=== PATIENT | male | born 1995 | race African-American/Black ===

== ENCOUNTER 2018-09-30 09:15 | Emergency (ER) | payer SELFPAY ==
[2018-09-30 09:30] VITALS: BP 151/74; PULSE 102; TEMP 98.1; BMI 36.2
[2018-09-30] MEDS ORDERED: ALBUTEROL SO4 2.5/IPRATROPIUM 0.5 INH SOL 3 ML VIAL.NEB. NEB ONE (10:10)
[2018-09-30] MEDS: ALBUTEROL SO4 2.5/IPRATROPIUM 0.5 INH SOL 3 ML VIAL.NEB. NEB SCH ×3 (10:12→11:03)
--- NOTE | 2018-09-30 10:22 | PDOC ---
History of Present Illness - General Chief Complaint: Rash Stated Complaint: RASH Time Seen by Provider: 09/30/18 09:38 History Source: Patient - History of Present Illness Timing/Duration: reports: week Location: reports: extremities, torso Past History - Past Medical History Allergies/Adverse Reactions: Allergies Allergy/AdvReac Type Severity Reaction Status Date / Time No Known Allergies Allergy Verified 09/30/18 09:27 Home Medications: Ambulatory Orders Albuterol Sulfate Inhaler - [Ventolin Hfa Inhaler -] 1 - 2 inh PO Q4H #1 inhaler 09/30/18 COPD: No CHF: No DVT: No - Immunization History Td Vaccination: (june 2014) Immunization Up to Date: Yes - Suicide/Smoking/Psychosocial Hx Smoking Status: Yes Smoking History: Never smoked Years of Tobacco Use: 0 Number of Cigarettes Smoked Daily: 3 Cigars Per Day: 0 Information on smoking cessation initiated: No Hx Alcohol Use: No Drug/Substance Use Hx: No Substance Use Type: Marijuana Review of Systems - Review of Systems Constitutional: No: Chills, Fever Respiratory: Yes: Cough. No: Shortness of Breath, Hemoptysis Cardiac (ROS): No: Chest Pain Integumentary: Yes: Rash. No: Pruritus *Physical Exam - Vital Signs Last Vital Signs Temp Pulse Resp BP Pulse Ox 98.1 F 102 H 16 151/74 97 09/30/18 09:28 09/30/18 09:28 09/30/18 09:28 09/30/18 09:28 09/30/18 09:28 - Physical Exam General Appearance: Yes: Appropriately Dressed. No: Apparent Distress HEENT: positive: Normal Voice Neck: positive: Supple Respiratory/Chest: positive: Wheezing (diffusely) Cardiovascular: positive: Regular Rate, S1, S2 Integumentary: positive: Dry, Warm, Other (fine, erythematous papules in almost linear streaks to R trunk, R neck and R arm, no hand/palm involvement) Neurologic: positive: Fully Oriented, Alert, Normal Mood/Affect Moderate Sedation - Procedure Monitoring Vital Signs: Procedure Monitoring Vital Signs Temperature 98.1 F 09/30/18 09:28 Pulse Rate 102 H 09/30/18 09:28 Respiratory Rate 16 09/30/18 09:28 Blood Pressure 151/74 09/30/18 09:28 O2 Sat by Pulse Oximetry (%) 97 09/30/18 09:28 ED Treatment Course - RADIOLOGY Radiology Studies Ordered: Category Date Time Status CHEST PA & LAT [RAD] Stat Radiology 09/30/18 10:01 Taken Medical Decision Making - Medical Decision Making 09/30/18 10:17 23 yo M, smoker, here w/ rash to trunk, extremities and face x 1 week. No pruritus or pain. No obvious inciting factors such as sick contacts, travel, contact w/ plants/poison monica or new soap/detergent. No h/o same. Also reports cough x 2 years, mostly non-productive. No wheezing, CP, f/c. Quit smoking 3 days ago for the new years per pt See exam Nonspecific dermatitis No e/o serious pathology -dc w/ derm f/u Chronic cough Concern for possible COPD Smoker +wheezing on exam -nebs -CXR -anticipate dc w/ alb pump and pulm referral for PFTs 09/30/18 11:06 CXR unremarkable. Lungs clear s/p nebs and able to ambulate without sob. Will dc w/ alb pump and pulm referral. Derm referral also given for rash *DC/Admit/Observation/Transfer Diagnosis at time of Disposition: Cough, Dermatitis - Discharge Dispostion Disposition: HOME Condition at time of disposition: Improved - Prescriptions Prescriptions: Albuterol Sulfate Inhaler - [Ventolin Hfa Inhaler -] 1 - 2 inh PO Q4H #1 inhaler - Referrals Referrals: Eleanor Kang MD [Staff Physician] - Niles Antoine MD [Staff Physician] - - Patient Instructions Printed Discharge Instructions: DI for Rash Additional Instructions: Please follow up with Dr Antoine of pulmonary for further evaluation and use pump as needed for shortness of breath and wheezing Please follow up with Dr Kang or dermatology if rash persists - Post Discharge Activity
== END 2018-09-30 11:17 | disposition home or self-care (01) ==
LOC: JERFT 09:15
DX: L30.9 Dermatitis, unspecified (principal); R05 Cough; Z72.0 Tobacco use
CPT/HCPCS: 71046-TC-FY; 99281-25

== ENCOUNTER 2019-09-08 13:37 | Emergency (ER) | payer OTHER ==
[2019-09-08 13:52] VITALS: BP 121/69; PULSE 64; TEMP 97.7; BMI 32.1
--- NOTE | 2019-09-08 15:14 | PDOC ---
History of Present Illness - General Chief Complaint: Chest Pain Stated Complaint: CHEST PAIN Time Seen by Provider: 09/08/19 13:58 - History of Present Illness Initial Comments: 09/08/19 15:13 23-year-old male without comorbidities presents for evaluation of 1 day of chest pain which started this morning while he was waking up. Pain exacerbated with motion relieved with rest and without radiation no systemic symptoms. Past History - Past Medical History Allergies/Adverse Reactions: Allergies Allergy/AdvReac Type Severity Reaction Status Date / Time No Known Allergies Allergy Verified 09/08/19 13:44 Home Medications: Ambulatory Orders Albuterol Sulfate Inhaler - [Ventolin Hfa Inhaler -] 1 - 2 inh PO Q4H #1 inhaler 09/30/18 COPD: No CHF: No DVT: No - Immunization History Td Vaccination: (june 2014) Immunization Up to Date: Yes - Psycho Social/Smoking Cessation Hx Smoking Status: Yes Smoking History: Current every day smoker Years of Tobacco Use: 0 Have you smoked in the past 12 months: Yes Number of Cigarettes Smoked Daily: 3 Cigars Per Day: 0 Information on smoking cessation initiated: No Hx Alcohol Use: No Drug/Substance Use Hx: Yes (MARIJUANA) Substance Use Type: Marijuana Review of Systems - Review of Systems Cardiac (ROS): Yes: Chest Pain *Physical Exam - Vital Signs Last Vital Signs Temp Pulse Resp BP Pulse Ox 97.7 F 64 18 121/69 100 09/08/19 13:49 09/08/19 13:49 09/08/19 13:49 09/08/19 13:49 09/08/19 13:49 - Physical Exam 09/08/19 15:13 GENERAL: The patient is awake, alert, and fully oriented, in no acute distress. HEAD: Normal with no signs of trauma. EYES: sclera anicteric, conjunctiva clear. ENT: Ears normal tympanic membranes normal oropharynx clear uvula midline NECK: Normal range of motion LUNGS: Breath sounds equal, clear to auscultation bilaterally. No wheezes, and no crackles. HEART: S1 and S2 without murmur, rub or gallop. Left-sided costochondral tenderness ABDOMEN: Soft, nontender, normoactive bowel sounds. No guarding, no rebound. No masses. EXTREMITIES: Normal range of motion, no edema. No clubbing or cyanosis. No cords, erythema, or tenderness. NEUROLOGICAL: Cranial nerves II through XII grossly intact. Normal speech, normal gait. PSYCH: Normal mood, normal affect. SKIN: Warm, Dry, normal turgor, no rashes or lesions noted. ED Treatment Course - RADIOLOGY Radiology Studies Ordered: Category Date Time Status CHEST PA & LAT [RAD] Stat Radiology 09/08/19 13:58 Ordered Medical Decision Making - Medical Decision Making 09/08/19 15:13 Normal chest x-ray and EKG reproducible chest pain costochondritis Tylenol Motrin for pain follow-up with PCP Discharge - Discharge Information Problems reviewed: Yes Clinical Impression/Diagnosis: Costochondritis Condition: Stable Disposition: HOME - Admission No - Follow up/Referral Referrals: Monica Solano MD [Staff Physician] - - Patient Discharge Instructions Additional Instructions: Tylenol Motrin for pain. Return to the emergency room for worsening symptoms. Without fail please follow-up with internal medicine in 2 to 3 days for further evaluation and treatment options. - Post Discharge Activity
== END 2019-09-08 15:39 | disposition home or self-care (01) ==
LOC: JERFT 13:37
DX: M94.0 Chondrocostal junction syndrome [Tietze] (principal); F17.210 Nicotine dependence, cigarettes, uncomplicated
CPT/HCPCS: 71046-TC-FY; 99281-25

== ENCOUNTER 2019-11-18 14:24 | Emergency (ER) | payer OTHER ==
[2019-11-18 14:36] VITALS: BP 132/87; PULSE 70; TEMP 97.8; BMI 34.8
[2019-11-18] MEDS ORDERED: KETOROLAC TROMETHAMINE 30 MG/1 ML VIAL IM ONE (15:12)
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
[2019-11-18] MEDS ORDERED: METHOCARBAMOL 500 MG TABLET PO ONE (15:31)
[2019-11-18] MEDS ORDERED: KETOROLAC TROMETHAMINE 30 MG/1 ML VIAL ONE (16:10)
[2019-11-18] MEDS ORDERED: METHOCARBAMOL 500 MG TABLET ONE (16:10)
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
== END 2019-11-18 17:00 | disposition home or self-care (01) ==
LOC: JER 14:24
PROC: 3E0233Z Introduction of Anti-inflammatory into Muscle, Percutaneous Approach (ICD-10-PCS; principal; 2019-11-18)
DX: S13.4XXA Sprain of ligaments of cervical spine, initial encounter (principal); V43.64XA Car passenger injured in collision with van in traffic accident, initial encounter; Y92.414 Local residential or business street as the place of occurrence of the external cause; W22.12XA Striking against or struck by front passenger side automobile airbag, initial encounter; Y93.89 Activity, other specified; Y99.8 Other external cause status
CPT/HCPCS: 70450-TC; 72125-TC; 72131-TC; 73110-TC-RT-FY; 73130-TC-RT-FY; 99285-25

== ENCOUNTER 2022-12-05 14:35 | Emergency (ER) | payer OTHER ==
[2022-12-05 15:02] VITALS: BP 123/67; PULSE 85; RESP 20; TEMP 98.2; BMI 39.0
[2022-12-05] MEDS ORDERED: IBUPROFEN 600 MG TABLET (FP) PO ONE ×2 (16:45→16:46)
[2022-12-05] MEDS ORDERED: METHOCARBAMOL 500 MG TABLET PO ONE (16:45)
[2022-12-05] MEDS ORDERED: METHOCARBAMOL 500 MG TABLET ONE (16:46)
== END 2022-12-05 18:12 | disposition home or self-care (01) ==
LOC: JERFT 14:35
DX: M54.50 Low back pain, unspecified (principal); V49.50XA Passenger injured in collision with unspecified motor vehicles in traffic accident, initial encounter
CPT/HCPCS: 99283-25

== ENCOUNTER 2024-03-22 14:58 | Emergency (ER) | payer OTHER ==
[2024-03-22 15:33] VITALS: BP 136/91; PULSE 82; RESP 16; TEMP 98; BMI 36.2
== END 2024-03-22 16:27 | disposition home or self-care (01) ==
LOC: JERFT 14:58
DX: Z48.02 Encounter for removal of sutures (principal); S71.101D Unspecified open wound, right thigh, subsequent encounter
CPT/HCPCS: 99281-25